=== PATIENT | female | born 1980 | race Caucasian/White ===

== ENCOUNTER 2022-04-19 04:57 | Emergency (ER) | payer OTHER, MEDICAID ==
[~2022-04-19] VITALS: Ht 167.6 cm; Wt 68.0 kg
[2022-04-19 05:19] VITALS: BP_SYST 115
--- NOTE | 2022-04-19 05:33 | NUR ---
Placed in room 3 . Placed on residential monitor, blood pressure machine and pulse oximeter. To gown for exam. Side rails up. Report given to Pat CANCHOLA.
--- NOTE | 2022-04-19 05:34 | NUR ---
MOSES Larson at bedside examining patient. Addendum: 04/19/22 at 0602 by [id number] Pt luc[place]
== END 2022-04-19 05:57 | disposition left against medical advice (07) ==
LOC: SED 04:57
DX: R51.9 Headache, unspecified (principal); Z53.21 Procedure and treatment not carried out due to patient leaving prior to being seen by health care provider